=== PATIENT | male | born 1955 | race Caucasian/White ===

== ENCOUNTER 2023-09-09 19:01 | Observation (INO) | payer BC, SELFPAY ==
--- NOTE | ~2023-09-09 | CT_ITS ---
EXAMINATION: CTA BRAIN/CAROTID DATE: 09/09/2023 22:46 INDICATION: Dizziness TECHNIQUE: Computed tomographic angiography (CTA) of the head and neck was performed with 100 mL Omni paque-350 intravenous contrast. Multiplanar reconstructions and maximum intensity projection 3D-recon structions of the carotid arteries and of the intracranial arteries were created by the technologist on a separate workstation. Automated exposure control and iterative reconstruction technique were emp loyed.The dose-length product was 1305.38 mGy-cm. COMPARISON: Head CT dated 09/09/2023 FINDINGS: Carotid arteries: There is no evident atherosclerotic plaque with 0% stenosis of the right carotid bulb relative to nor mal distal artery lumen diameter (NASCET criteria). There is small amount of atherosclerotic plaque w ith 0% stenosis of the left carotid bulb relative to normal distal artery lumen diameter. Left verteb ral artery is dominant. No significant stenosis evident along the cervical portions of the bilateral vertebral arteries. Mild dependent atelectasis in the visualized upper lungs. The cervical soft tissu es and visualized superior mediastinum are unremarkable. Moderate to severe cervical spondylosis. Intracranial arteries There is no hemodynamically significant stenosis in the vertebral, basilar and internal carotid arter ies. Left vertebral artery is dominant.. There are no aneurysms identified. Both A1 and P1 segments are patent. Cerebral arterial arborization appears symmetric. IMPRESSION: 1. 0% stenosis of the right and left carotid bulbs relative to normal distal artery lumen diameter (N ASCET criteria). 2. Unremarkable cerebral CT angiogram with no hemodynamically significant stenosis, thrombosis or ane urysm. Reviewed, dictated and finalized at location A. ING ALLEY REFINISHER IMPRESSION: 1. 0% stenosis of the right and left carotid bulbs relative to normal distal ar macario lumen diameter (NASCET criteria). 2. Unremarkable cerebral CT angiogram with no hemodynamically significant steno sis, thrombosis or aneurysm.
--- NOTE | ~2023-09-09 | MR_ITS ---
MRI of the brain Clinical History: Ataxia Technique: Axial and sagittal T1-weighted images were acquired. These were followed by axial T2-weigh giovanna, diffusion weighted, gradient, and FLAIR images. Following intravenous administration of 18 cc Mu ltiHance gadolinium, T1-weighted fat-sat imaging was performed in the axial and coronal planes. Findings: There is no acute infarct, intracranial hemorrhage, or mass lesion. There are minimal chron ic white matter changes in the periventricular white matter bilaterally. Ventricles and subarachnoid spaces are unremarkable. Orbits are unremarkable. Paranasal sinuses and m astoid air cells are clear. Major intracranial flow voids are intact. Sagittal midline structures are intact. No abnormal postcontrast enhancement identified. IMPRESSION: Minimal chronic white matter changes, otherwise unremarkable exam. Reviewed, dictated and finalized at location M. ISSIONER PUBLIC WORKS
--- NOTE | ~2023-09-09 | XR_ITS ---
EXAMINATION: XR chest 2V DATE: 09/09/2023 21:41 INDICATION: Dizziness with any movement TECHNIQUE: frontal and lateral views of the chest were obtained. COMPARISON: Chest radiograph dated FINDINGS: The lungs are clear with no focal airspace opacities, pulmonary edema, pleural effusion or pneumothor ax. The cardiomediastinal silhouette is normal. Moderate to severe thoracic spondylosis. IMPRESSION: 1. No acute cardiopulmonary disease. Reviewed, dictated and finalized at location A. OTIC ASSISTANT
--- NOTE | ~2023-09-09 | CT_ITS ---
EXAMINATION: CT abdomen pelvis w con DATE: 09/10/2023 13:20 INDICATION: Abdominal pain TECHNIQUE: Computed tomography (CT) of the abdomen and pelvis was performed with 200 CC Omnipaque 350 intravenous contrast due to repeat scan and injection as result of motion. Automated exposure contro l and iterative reconstruction technique were employed. Exam dose: 1294.38 mGy-cm total exam DLP. COMPARISON: None. FINDINGS: Minimal patchy groundglass infiltrates of the right upper and lower lobes. Heart size is within normal range. No pericardial or pleural effusion. Small sliding hiatal hernia. The liver, gallbladder, bile ducts, spleen, pancreas, pancreatic duct, and adrenal glands and kidneys are unremarkable. No urinary tract calculus or hydroureteronephrosis. There is mild to moderate pros carter enlargement. The urinary bladder is unremarkable. Normal caliber of the abdominal aorta. No intraperitoneal or retroperitoneal or pelvic mass lesion or adenopathy or ascites. Small sliding hiatal hernia. Minimal diverticulosis of the colon; no evidence of diverticulitis. Normal appendix. No bowel obstruction, bowel wall thickening, pneumatosis or intraperitoneal free air is detected. No suspicious osteolytic or osteoblastic lesions. IMPRESSION: Small sliding hiatal hernia Normal appendix Minimal colonic diverticulosis; no evidence of diverticulitis Prostate enlargement Reviewed, dictated and finalized at Location A. Reviewed, dictated and finalized at location L. ING PROCESS SPECIALIST
--- NOTE | ~2023-09-09 | CT_ITS ---
EXAMINATION: CT brain wo con DATE: 09/09/2023 21:33 INDICATION: Dizziness. Altered mental status. TECHNIQUE: Computed tomography (CT) of the head was performed without intravenous contrast. Sagittal and coronal reconstructions were performed. The mA was adjusted according to patient size. Iterative reconstruction technique was employed. The dose-length product was 681.00 mGy-cm. COMPARISON: None FINDINGS: No acute intracranial hemorrhage, acute infarction or abnormal extra axial fluid collection. Symmetri c prominence of the sulci and subarachnoid spaces overlying the convexities consistent with mild age- appropriate diffuse cerebral volume loss. Ventricles are normal and symmetric. No mass/mass effect. T he orbits, paranasal sinuses and mastoid air cells are normal. IMPRESSION: 1. Normal aging brain. No acute intracranial process. Reviewed, dictated and finalized at location A. MOTIVE PARTS COUNTER ASSISTANT
[2023-09-09 19:05] VITALS: BP 190/84; PULSE 59; RESP 16; TEMP 36.7; O2SAT 100
[2023-09-09 21:01] VITALS: BP 179/90; PULSE 60; RESP 15; O2SAT 99
--- NOTE | 2023-09-09 21:21 | ECG_ITS ---
Measurements Intervals [place] Rate: 57 P: 28 OR: 225 QRS: -43 QRSD: 114 T: -7 QT: 424 QTc: 416 Interpretive Statements SINUS BRADYCARDIA WITH FIRST DEGREE AV BLOCK INCOMPLETE RIGHT BUNDLE BRANCH BLOCK [90+ ms QRS DURATION, TERMINAL R IN V1/V2, 40+ ms S IN I/aVL/V4/V5/V6] POSSIBLE ANTERIOR MYOCARDIAL INFARCTION , OF INDETERMINATE AGE [30 ms Q WAVE IN V3/V4, OR R < 0.2 mV IN V4] INFERIOR MYOCARDIAL INFARCTION , OF INDETERMINATE AGE [40+ ms Q WAVE AND/OR ST/T ABNORMALITY IN II/aVF] NO PREVIOUS ECG AVAILABLE FOR COMPARISON Electronically Signed On 09-10-2023 14:59:59 ORTHODONTIC LAB TECHNICIAN by Noemy Watson M.D.
[2023-09-09 21:49] LABS: Basophils Absolute Auto 0.1 K/mm3 (0.0-0.1); Basophils Percent Auto 0.5 % (0.2-1.2); Eosinophils Percent Auto 0.2 % (0-4.4); Hemoglobin 14.7 g/dL (14.0-18.0); Immature Granulocyte Absolute 0.04 K/mm3 (0.00-0.031); Immature Granulocyte Percent A 0.3 % (0-0.5); Lymphocytes Absolute Auto 0.77 K/mm3 (0.9-3.2); Lymphocytes Percent Auto 6.3 % (18.3-44.2); Mean Corpuscular HGB Conc 32.7 g/dl (32-36); Mean Corpuscular Hemoglobin 29.9 pg (26-34); Mean Corpuscular Volume 91.6 fl (80-100); Mean Platelet Volume 9.8 fl (7.4-10.4); Monocytes Absolute Auto 0.5 K/mm3 (0.1-0.6); Monocytes Percent Auto 4.3 % (2.6-8.5); Neutrophils Absolute Auto 10.8 K/mm3 (1.3-6.7); Neutrophils Percent Auto 88.4 % (45.5-73.1); Platelet Count Result 199 k/mm3 (150-375); Red Blood Count 4.91 M/mm3 (4.6-6.20); Red Cell Distribution Width 12.2 % (11.5-14.5); White Blood Count 12.3 K/mm3 (4.5-10.0)
[2023-09-09 21:57] LABS: Alanine Aminotransferase 20 U/L (6-50); Albumin Level 4.5 g/dL (3.5-5.1); Alkaline Phosphatase 69 U/L (38-126); Anion Gap 2 mmol/L (8-16); Aspartate Amino Transferase 40 U/L (17-59); Bilirubin,Total 0.8 mg/dL (0.2-1.3); Blood Urea Nitrogen 24 mg/dL (9-20); Calcium 9.5 mg/dL (8.4-10.2); Carbon Dioxide 27 mmol/L (22-30); Chloride 108 mmol/L (98-107); Estimated CRCL calculation 64 ml/min; Estimated Glomerular Filt Rate > 60; Glucose 147 mg/dL (65-110); Potassium 4.2 mmol/L (3.4-5.0); Sodium 137 mmol/L (137-145)
--- NOTE | 2023-09-09 22:06 | ED.RECABL ---
HPI - Recheck/Abnormal Lab/Rx General Chief Complaint: Recheck/Abnormal Lab/Rx Stated Complaint: dizzy, nausea, hx lewy body dementia Time Seen by Provider: 09/09/23 21:21 Source: patient and family Mode of arrival: ambulatory Limitations: dementia History of Present Illness HPI narrative: This is a 67-year-old male that presents to the emergency department for dizziness. Ongoing since this morning. Associated with feelings of being off balance, nausea and vomiting. Denies fever, chest pain, shortness of breath, focal numbness or weakness. Related Data Allergies Allergy/AdvReac Type Severity Reaction Status Date / Time PENICILLIN Allergy Swelling Uncoded 09/09/23 20:55 Review of Systems Review of Systems: CONSTITUTIONAL: Denies fever EYES: Denies visual changes CARDIOVASCULAR: Denies chest pain, or edema. RESPIRATORY: Denies dyspnea. GASTROINTESTINAL: Reports nausea, vomiting NEUROLOGIC: Denies headache, numbness, or weakness. All systems reviewed & are unremarkable except as noted in HPI and below PMFSH Past Medical History Medical History (Updated 09/10/23 @ 00:43 by Estrellita Rodgers PA-C) History of BPH History of dementia Social History Social History (Updated 09/09/23 @ 22:10 by Estrellita Rodgers PA-C) Substance use: never Exam Narrative: GENERAL: Well-appearing, well-nourished, and in no acute distress. HEAD: Normocephalic, atraumatic. EYES: PERRLA and EOMI. ENT: Nares clear, no rhinorrhea or epistaxis. Mucous membranes moist. Oropharynx without tonsillar hypertrophy exudate or other lesions. Bilateral TMs pearly davidson non-bulging NECK: Supple. No adenopathy or masses. CHEST: Clear to auscultation. No respiratory distress. No wheezes rales or rhonchi HEART: Regular rate and rhythm. No murmur heard. Normal peripheral pulses. EXTREMITIES: Normal range of motion. No edema. Strength equal in bilateral upper and lower extremities (5/5) SKIN: Warm, dry, no rash. NEURO: No focal deficits. Alert and oriented x3. Cranial nerves 2-12 grossly intact. Normal [id number]. Difficulty with finger to nose bilaterally PSYCH: Normal mood and affect Course Course Emergency Course: Patient and family updated on his workup. Patient continues to be off balance, unable to ambulate. Will be admitted for further evaluation Consultations Consultation #1: Spoke with hospitalist about patient and workup who accepts admission Date: 09/09/23 Vital Signs Vital signs: Vital Signs Temperature 98.0 F 09/09/23 19:05 Pulse Rate 59 L 09/09/23 19:05 Respiratory Rate 16 09/09/23 19:05 Blood Pressure 190/84 H 09/09/23 19:05 Pulse Oximetry 100 09/09/23 19:05 Oxygen Delivery Room Air 09/09/23 19:05 Temperature 98.0 F 09/09/23 19:05 Pulse Rate 55 L 09/09/23 23:01 Respiratory Rate 17 09/09/23 23:01 Blood Pressure 176/85 H 09/09/23 23:01 Pulse Oximetry 98 09/09/23 23:01 Oxygen Delivery Room Air 09/09/23 21:01 MDM - Recheck/Abnormal Lab/Rx MDM Narrative Medical decision making narrative: Patient presents to the ER for dizziness ongoing since this morning. Hypertensive upon arrival. This downtrended without intervention. Patient did have difficulty with finger to nose, otherwise neurologically intact at his baseline. CBC with mild leukocytosis to 12.3. Metabolic panel without concerning findings. Urine without evidence of infection. Chest x-ray without acute cardiopulmonary abnormality. CT brain without acute findings. CTA brain and carotid unremarkable. EKG without concerning changes. Patient and family updated on his workup. Patient continues to be off balance, unable to ambulate. Will be admitted for further evaluation. Spoke with hospitalist about patient and workup who accepts admission Differential Diagnosis Differential diagnosis: Likely other (CVA, BPPV, infection, electrolyte derangement, dehydration) Lab Data Attestation: I reviewed the patient's lab results. 09/09/23
[2023-09-09] MEDS: SODIUM CHLORIDE 0.9% IV 500 ML 999 ML IV CONT (22:12)
[2023-09-09] MEDS: MECLIZINE HCL 25 MG TABLET PO (22:13)
[2023-09-09] MEDS: ONDANSETRON INJ 4 MG/2 ML VIAL IV PUSH (22:13)
[2023-09-09 23:01] VITALS: BP 176/85; PULSE 55; RESP 17; O2SAT 98
[2023-09-09 23:02] LABS: Appearance Urine Clear (Clear); Bilirubin Urine Negative (Negative); Blood Urine Negative (Negative); Color Urine Yellow (Yellow); Glucose Urine UA Negative (Negative); Ketones Urine Negative (Negative); Leukocyte Esterase Ur Negative LEU/UL (Negative); Nitrate Urine Negative (Negative); Protein Urine Negative (Negative); Specific Grav Ur 1.021 (1.001-1.035)
[2023-09-09 23:18] LABS: Add Urine Microscopic? NO
--- NOTE | 2023-09-09 23:38 | PC.NURSE ---
Pt attempted ambulation w technician plant and maintenanceKendall medrano. Pt was unable to ambulate due to sensation that room was spinning . RAQUEL Knowles made aware.
[2023-09-10] VITALS (12 sets, daily range): BP systolic 120–189; BP diastolic 67–88; PULSE 53–66; RESP 16–20; TEMP 36.4–36.9; O2SAT 97–100
--- NOTE | 2023-09-10 | ECHO_ITS ---
Patient Info Name: Dom Giles Age: 67 years : 1955 Gender: Male Ht: 69 in Wt: 185 lbs BSA: 2.04 m2 HR: 66 bpm BP: 189 / 85 mmHg Heart Rhythm: Sinus Rhythm Technical Quality: Good Exam Date: 09/10/2023 9:55 AM Exam Location: Echo Lab Patient Status: Outpatient Admit Date: 09/10/2023 Staff Ordering Physician: Bettye Stoner Rail Grinder: Tarun Ross RDCS Attending Provider: Bettye Stoner Referring Physician: Georgiana SY; Exam Type: CA echo doppler color flow Study Info Indications - vertigo Complete two-dimensional, color flow and Doppler transthoracic echocardiogram is performed. Summary 1. Complete two-dimensional, color flow and Doppler transthoracic echocardiogram is performed. 2. Left ventricular chamber dimension is normal. 3. Left ventricular systolic function is normal, estimated at 65-70%. 4. Right ventricular systolic function is normal. 5. There is mild aortic valve regurgitation. 6. There is mild mitral valve regurgitation. 7. The aortic root size at the sinus of Valsalva is mildly dilated. Left Ventricle Left ventricular chamber dimension is normal. Left ventricular systolic function is normal, estimated at 65-70%. There is no increased left ventricular wall thickness. The left ventricular diastolic function is normal. Right Ventricle Right ventricular chamber dimension is normal. Right ventricular systolic function is normal. Left Atria Left atrial chamber dimension is normal. Right Atria Right atrial chamber dimension is normal. Atrial Septum Intact interatrial septum visualized by color flow imaging. Aortic Valve The aortic valve is trileaflet. There is no aortic valve stenosis. There is mild aortic valve regurgitation. Pulmonic Valve The pulmonic valve is not well visualized. There is trace pulmonic regurgitation. Mitral Valve There is mild mitral valve regurgitation. Tricuspid Valve There is trace tricuspid valve regurgitation. Pericardium/Pleural There is no pericardial effusion. Inferior Vena Cava Normal inferior vena cava with >50% collapse upon inspiration consistent with normal right atrial pressure, 3 mmHg. Aorta The aortic root size at the sinus of Valsalva is mildly dilated. Left Ventricular Outflow Tract Name Value Normal LVOT 2D LVOT Diameter 2.3 cm LVOT Doppler LVOT Peak Gradient 5 mmHg LVOT Mean Gradient 3 mmHg LVOT VTI 25 cm LVOT VTI/AV VTI Ratio 0.7 LVOT Stroke Volume 106 ml LVOT CO 6.4 l/min LVOT CI 3.1 l/min/m2 Pulmonic Valve Name Value Normal RVOT Doppler RVOT Peak Gradient 3 mmHg PV Doppler PV Peak Gradient 9 mmHg
--- NOTE | 2023-09-10 00:15 | PM.IMHP ---
H&P: HPI History of Present Illness Date/Time: 09/10/23 00:15 Chief Complaint: Dizziness Narrative: This is a 67-year-old male with past medical history significant Lewi body dementia is visiting here from [place] with his he was brought to the emergency room due to 's concerned for the patient debilitating dizziness according to who is at bedside from whom history has been obtained patient has not been able to provide any meaningful history. According to he has been his usual state of health up until early in the morning when he was unable to stand due to dizziness happens every time he stands she checked his blood pressure it was a systolic 195. Preliminary workup here has been essentially nonrevealing. Patient has been placed in observation for further evaluation management and treatment. EXAMINATION: CT brain wo con DATE: 09/09/2023 21:33 INDICATION: Dizziness. Altered mental status. TECHNIQUE: Computed tomography (CT) of the head was performed without intravenous contrast. Sagittal and coronal reconstructions were performed. The mA was adjusted according to patient size. Iterative reconstruction technique was employed. The dose-length product was 681.00 mGy-cm. COMPARISON: None FINDINGS: No acute intracranial hemorrhage, acute infarction or abnormal extra axial fluid collection. Symmetric prominence of the sulci and subarachnoid spaces overlying the convexities consistent with mild age-appropriate diffuse cerebral volume loss. Ventricles are normal and symmetric. No mass/mass effect. The orbits, paranasal sinuses and mastoid air cells are normal. IMPRESSION: 1. Normal aging brain. No acute intracranial process. EXAMINATION: XR chest 2V DATE: 09/09/2023 21:41 INDICATION: Dizziness with any movement TECHNIQUE: frontal and lateral views of the chest were obtained. COMPARISON: Chest radiograph dated FINDINGS: The lungs are clear with no focal airspace opacities, pulmonary edema, pleural effusion or pneumothorax. The cardiomediastinal silhouette is normal. Moderate to severe thoracic spondylosis. IMPRESSION: 1. No acute cardiopulmonary disease. EXAMINATION: CTA BRAIN/CAROTID DATE: 09/09/2023 22:46 INDICATION: Dizziness TECHNIQUE: Computed tomographic angiography (CTA) of the head and neck was performed with 100 mL Omnipaque-350 intravenous contrast. Multiplanar reconstructions and maximum intensity projection 3D-reconstructions of the carotid arteries and of the intracranial arteries were created by the technologist on a separate workstation. Automated exposure control and iterative reconstruction technique were employed.The dose-length product was 1305.38 mGy-cm. COMPARISON: Head CT dated 09/09/2023 ? FINDINGS: Carotid arteries: There is no evident atherosclerotic plaque with 0% stenosis of the right carotid bulb relative to normal distal artery lumen diameter (NASCET criteria). There is small amount of atherosclerotic plaque with 0% stenosis of the left carotid bulb relative to normal distal artery lumen diameter. Left vertebral artery is dominant. No significant stenosis evident along the cervical portions of the bilateral vertebral arteries. Mild dependent atelectasis in the visualized upper lungs. The cervical soft tissues and visualized superior mediastinum are unremarkable. Moderate to severe cervical spondylosis. Intracranial arteries There is no hemodynamically significant stenosis in the vertebral, basilar and internal carotid arteries. Left vertebral artery is dominant.. There are no aneurysms identified.? Both A1 and P1 segments are patent.? Cerebral arterial arborization appears symmetric. IMPRESSION: 1. 0% stenosis of the right and left carotid bulbs relative to normal distal artery lumen diameter (NASCET criteria). 2. Unremarkable cerebral CT angiogram with no hemodynamically significant stenosis, thrombosis or aneurysm. Review of Systems Review of Systems: ROS unobtainable:
--- NOTE | 2023-09-10 01:04 | ADMGEN ---
This patient, Dom Giles, was admitted to [facility] Surg Room 311-01. Patient/family oriented to hospital policies and general routines including ID bracelet, bed and alarms, visiting hours, pain management, procedures, bathroom and other care routines, personal items, smoking policy, room service/diet, and visiting hours. Information on how to activate the Rapid Response Team has been discussed. Patient/Family are encouraged to report perceived risks to care and to ask questions if they do not understand what they are told or what they should do.
[2023-09-10] MEDS: MECLIZINE HCL 25 MG TABLET PO ×2 (09:41→18:25)
[2023-09-10] MEDS: hydrALAZINE HCL 20 MG/ML VIAL 10 MG IV PUSH (09:42)
[2023-09-10] MEDS: MINOCYCLINE HCL 100 MG CAPSULE PO (09:42)
[2023-09-10 10:01] LABS: Basophils Absolute Auto 0.1 K/mm3 (0.0-0.1); Basophils Percent Auto 1.2 % (0.2-1.2); Eosinophils Absolute Auto 0.1 K/mm3 (0-0.3); Eosinophils Percent Auto 1.3 % (0-4.4); Hematocrit 43.3 % (42.0-52.0); Hemoglobin 13.9 g/dL (14.0-18.0); Immature Granulocyte Absolute 0.03 K/mm3 (0.00-0.031); Immature Granulocyte Percent A 0.4 % (0-0.5); Lymphocytes Absolute Auto 1.38 K/mm3 (0.9-3.2); Lymphocytes Percent Auto 16.6 % (18.3-44.2); Mean Corpuscular HGB Conc 32.1 g/dl (32-36); Mean Corpuscular Hemoglobin 29.8 pg (26-34); Mean Corpuscular Volume 92.7 fl (80-100); Mean Platelet Volume 9.3 fl (7.4-10.4); Monocytes Absolute Auto 0.5 K/mm3 (0.1-0.6); Monocytes Percent Auto 5.5 % (2.6-8.5); Neutrophils Absolute Auto 6.2 K/mm3 (1.3-6.7); Platelet Count Result 182 k/mm3 (150-375); Red Blood Count 4.67 M/mm3 (4.6-6.20); Red Cell Distribution Width 12.3 % (11.5-14.5); White Blood Count 8.3 K/mm3 (4.5-10.0)
[2023-09-10 10:13] LABS: Alanine Aminotransferase 18 U/L (6-50); Albumin Level 4.1 g/dL (3.5-5.1); Alkaline Phosphatase 59 U/L (38-126); Anion Gap 3 mmol/L (8-16); Aspartate Amino Transferase 29 U/L (17-59); Bilirubin,Total 0.8 mg/dL (0.2-1.3); Blood Urea Nitrogen 16 mg/dL (9-20); Calcium 9.2 mg/dL (8.4-10.2); Carbon Dioxide 30 mmol/L (22-30); Chloride 108 mmol/L (98-107); Estimated CRCL calculation 59 ml/min; Estimated Glomerular Filt Rate > 60; Glucose 125 mg/dL (65-110); Magnesium 2.2 mg/dL (1.6-2.3); Potassium 4.3 mmol/L (3.4-5.0); Sodium 141 mmol/L (137-145)
--- NOTE | 2023-09-10 12:09 | PM.IMPN ---
Progress Note: A&P Assessment and Plan (1) Dizziness: Code(s): R42 - Dizziness and giddiness Status: Acute Assessment and Plan: Start Meclizine 25 mg Q6 hrs Await Neurology evaluation. CT brain and CTA head and neck without any remarkability. MRI without any acute findings. Physical exam is otherwise reassuring and labs are unremarkable this AM. (2) Lewy body dementia: Code(s): G31.83 - Neurocognitive disorder with Lewy bodies; F02.80 - Dementia in other diseases classified elsewhere, unspecified severity, without behavioral disturbance, psychotic disturbance, mood disturbance, and anxiety Status: Chronic Assessment and Plan: Resume home meds (3) Abdominal discomfort: Code(s): R10.9 - Unspecified abdominal pain Status: Acute Assessment and Plan: CT abdomen and pelvis unremarkable for Intraabdominal findings. Subsequent findings of Right sided PNA. I spoke with Dr. Shen and he confirmed RLL PNA. (4) Uncontrolled hypertension: Code(s): I10 - Essential (primary) hypertension Status: Acute Assessment and Plan: Hydralazine p.r.n. Start Lisinopril 10 mg po daily as pt's BP has been persistently elevated. Continue to monitor and trend VS. (5) Diarrhea: Code(s): R19.7 - Diarrhea, unspecified Status: Acute Assessment and Plan: Pt with one episode of diarrhea today. RN noted pt to be holding his abdomen as if in pain. CT Abd and Pelvis ordered to assess for s/s of acute GI infection vs. perforation given the elevation of his WBC's upon admission. No acute intra-abdominal findings. (6) RLL pneumonia: Code(s): J18.9 - Pneumonia, unspecified organism Status: Acute Assessment and Plan: Not meeting sepsis criteria. Start Azithromycin. Time Spent With Patient Time with patient: 25 - 35 minutes Subjective Date/time seen: 09/10/23 1015 Interval history: This pt was examined at the bedside in interval assessment after being admitted to the hospital with Vertigo. He has a hx of Lewy Body Dementia and is here visiting family from out of town. He has not had any changes in his medications as of recently. He also has not been acutely ill and denies any new changes in his vision or other senses. MRI brain was performed this AM and is unremarkable for any new findings. Pt is started on meclizine this AM and we will assess whether or not it has had any effect on pt's symptoms. We are also awaiting Neurological evaluation. PT and OT are ordered and are pending for Vertiginous maneuvers. Pt became agitated and holding his abdomen. He has had 1 BM today and has had a lot of gas and holding and guarding of his abdomen, but became very agitated with the RN walking to the toilet with him to see his stools. CT abd and pelvis ordered at this time as he was having what appeared to be distress and he did present with Leukocytosis. Those results were received and there are no acute intra-abdominal findings, but there was a concern for ground glass infiltrates in the RUL and RLL. I discussed with Dr. Shen the re-read of the CT because the pts CXR was normal on arrival and he re-read the CT as a PNA in the RLL. He will be started on Azithromycin. The pt and his family were updated. MRI of brain showed only a normal aging brain. He will be able to discharge once he has been cleared by Neurology tomorrow and will need a full course of Azithromycin. Review of Systems Review of Systems: All systems reviewed & are unremarkable except as noted in HPI and below Exam Narrative: CONSTITUTIONAL: Pleasant, middle aged appearing male sitting up at the bedside at this time in no acute distress. HEENT: Atraumatic and normocephalic head. MMM, and patent oropharynx. EYES: PERRLA, EOM's intact NECK: Supple, FROM without any LN or JVD CARDIAC: RRR, S1 and S2 present. No S3, S4, m,r,g,h or displacement of PMI RESPIRATORY: CTAB in all mandujano. GI: Soft,
--- NOTE | 2023-09-10 13:43 | WPDNEURCNPN ---
Consult date: 09/10/23 HPI: Dom Giles is a 67 year old male Admitted to the hospital through the emergency room for the complaints of ongoing Lewy body dementia along with nausea and dizziness at the time of arrival to the emergency room patient was ambulatory and exam was limited because of the dementia patient is reportedly allergic to penicillin, has ongoing history of benign prostatic hypertrophy and dementia with no history of substance use and initial exam in the emergency room documented difficulties in finger to nose finger bilaterally his vital signs were with blood pressure 190/84 repeat 176/85 routine CBC was normal basic metabolic panel with blood sugar 147 and BUN 24 otherwise lab negative head CT scan negative chest x-ray negative and head and neck CTA also negative since admission had the MRI of the brain which documented minimal chronic white matter changes. Abdomen pelvis CT scan revealed small sliding hiatal hernia with minimal colonic diverticulosis and prostate enlargement. Review of Systems Review of Systems: All systems reviewed & are unremarkable except as noted in HPI and below PMFSH Past Medical History Medical History (Updated 09/10/23 @ 12:34 by ANDERSON Killian) Diarrhea History of BPH History of dementia Family History Family History (Updated 09/10/23 @ 01:19 by Lucas Lowe RN) Sibling Asthma Mother Congestive heart failure Social History Social History (Updated 09/09/23 @ 22:10 by Estrellita Rodgers PA-C) Smoking status: Never smoker Alcohol intake: never Substance use: never Do You Feel Safe in your Home?: No Lack of Transportation: No Lack of Food: Never True Current Housing: I Have Housing Concerned About Future Housing: No Difficulty Paying Gas/Electric Bills: No Difficulty Paying for Meds: No Currently Unemployed: No Education: Master's Degree or Higher Difficulty w/ Childcare or Family Care: No Spiritual care concerns: No Meds Home Medications and Allergies Home Medications Medication Instructions Recorded Confirmed Type escitalopram oxalate 20 mg tablet 20 mg PO HS 09/10/23 09/10/23 History galantamine 24 mg 24 hr 24 mg PO DAILY 09/10/23 09/10/23 History capsule,extended release minocycline 100 mg capsule 100 mg PO BID 09/10/23 09/10/23 History pyridostigmine bromide 60 mg tablet 60 mg PO TID 09/10/23 09/10/23 History pyridostigmine bromide 60 mg tablet 300 mg PO TID 09/10/23 09/10/23 History Allergies Allergy/AdvReac Type Severity Reaction Status Date / Time Penicillins Allergy Severe Swelling Verified 09/10/23 09:59 Vital Signs Vital Signs - 24 hr 09/09/23 19:05 09/09/23 21:01 09/09/23 23:01 Temperature 36.7 C Pulse Rate 59 L 60 55 L Respiratory Rate 16 15 17 Blood Pressure 190/84 H 179/90 H 176/85 H Pulse Oximetry 100 99 98 Oxygen Delivery Room Air Room Air 09/10/23 00:39 09/10/23 00:58 09/10/23 00:45 Temperature 36.6 C Pulse Rate 62 62 57 L Respiratory Rate 16 16 20 Blood Pressure 169/76 H 176/85 H Pulse Oximetry 98 98 100 Oxygen Delivery Room Air 09/10/23 06:00 Temperature 36.4 C Pulse Rate 66 Respiratory Rate 20 Blood Pressure 189/85 H Pulse Oximetry 99 Oxygen Delivery Results Labs 09/10/23 09:45 09/10/23 09:45 Labs: Short CBC 09/09/23 09/10/23 Range/Units 21:05 09:45 WBC 12.3 H 8.3 (4.5-10.0) K/mm3 Hgb 14.7 13.9 L (14.0-18.0) g/dL Hct 45.0 43.3 (42.0-52.0) % Plt Count 199 182 (150-375) k/mm3 [facility] 09/09/23 09/10/23 21:05 09:45 Sodium 137 141 Potassium 4.2 4.3 Chloride 108 H 108 H Carbon Dioxide 27 30 BUN 24 H 16 Creatinine 1.00 1.10 Glucose 147 H 125 H Calcium 9.5 9.2 Liver Function 09/09/23 09/10/23 Range/Units 21:05 09:45 Total Bilirubin 0.8 0.8 (0.2-1.3) mg/dL AST 40 29 (17-59) U/L ALT 20 18 (6-50) U/L Alkaline Phosphatase 69 59 (38-126) U/L Albumin 4.5 4.1
--- NOTE | 2023-09-10 14:16 | WPDNEURCNPN ---
Consult date: 09/10/23 HPI: Dom Giles is a 67 year old maleAdmitted to the hospital through the emergency room for the complaints of dizziness with nausea in addition to the history of Lewy body dementia patient complained of feeling of being off balance along with the nausea and vomiting, he is allergic to penicillin, has also ongoing history of benign prostatic hypertrophy with no history of substance use and initial exam in the emergency room with difficulties in performing [id number]-[id number]-finger bilaterally initial vital signs revealed blood pressure 190/84 with repeat 176/85, CBC with WBC 12.3 BMP with blood sugar of over 47 and BUN of [address] scan of the brain negative chest x-ray negative head and neck CTA negative EKG negative with no atrial fibrillation, subsequently had the MRI of the brain which revealed only minimal chronic white matter changes. At the time from it admission medications include E citalopram 20mg at night [id number] daily and pyridostigmine 300mg 3 times a day and also 60mg 3 times a day? Review of Systems Review of Systems: All systems reviewed & are unremarkable except as noted in HPI and below PMFSH Past Medical History Medical History (Updated 09/10/23 @ 12:34 by ANDERSON Killian) Diarrhea History of BPH History of dementia Family History Family History (Updated 09/10/23 @ 01:19 by Lucas Lowe RN) Sibling Asthma Mother Congestive heart failure Social History Social History (Updated 09/09/23 @ 22:10 by Estrellita Rodgers PA-C) Smoking status: Never smoker Alcohol intake: never Substance use: never Do You Feel Safe in your Home?: No Lack of Transportation: No Lack of Food: Never True Current Housing: I Have Housing Concerned About Future Housing: No Difficulty Paying Gas/Electric Bills: No Difficulty Paying for Meds: No Currently Unemployed: No Education: Master's Degree or Higher Difficulty w/ Childcare or Family Care: No Spiritual care concerns: No Meds Home Medications and Allergies Home Medications Medication Instructions Recorded Confirmed Type escitalopram oxalate 20 mg tablet 20 mg PO HS 09/10/23 09/10/23 History galantamine 24 mg 24 hr 24 mg PO DAILY 09/10/23 09/10/23 History capsule,extended release minocycline 100 mg capsule 100 mg PO BID 09/10/23 09/10/23 History pyridostigmine bromide 60 mg tablet 60 mg PO TID 09/10/23 09/10/23 History pyridostigmine bromide 60 mg tablet 300 mg PO TID 09/10/23 09/10/23 History Allergies Allergy/AdvReac Type Severity Reaction Status Date / Time Penicillins Allergy Severe Swelling Verified 09/10/23 09:59 Vital Signs Vital Signs - 24 hr 09/09/23 19:05 09/09/23 21:01 09/09/23 23:01 Temperature 36.7 C Pulse Rate 59 L 60 55 L Respiratory Rate 16 15 17 Blood Pressure 190/84 H 179/90 H 176/85 H Pulse Oximetry 100 99 98 Oxygen Delivery Room Air Room Air 09/10/23 00:39 09/10/23 00:58 09/10/23 00:45 Temperature 36.6 C Pulse Rate 62 62 57 L Respiratory Rate 16 16 20 Blood Pressure 169/76 H 176/85 H Pulse Oximetry 98 98 100 Oxygen Delivery Room Air 09/10/23 06:00 Temperature 36.4 C Pulse Rate 66 Respiratory Rate 20 Blood Pressure 189/85 H Pulse Oximetry 99 Oxygen Delivery Exam Narrative: revealed him to be awake alert cooperative in no obvious acute distress able to sit at the bedside without any truncal ataxia head normocephalic with no cranial bruit ear nose throat examination normal neck is supple with no bruit heart regular with no murmur lungs clear abdomen soft neurological he is awake alert oriented being in the hospital his speech nor dysphasic not dysarthric not dysphonic pupils round regular feels the vision full extraocular movements full face symmetrical tongue midline motor examination revealed him to have no drift of 1 side or other side tone is normal reflexes are symmetrical and plantars downgoing he had difficulties in giving
[2023-09-10] MEDS: ACETAMINOPHEN 325 MG TABLET 650 MG PO (16:04)
[2023-09-10] MEDS: pyRIDostigmine bromide 60 MG TABLET PO ×2 (16:05→20:40)
[2023-09-10 17:06] LABS: Influenza A QL RT-PCR Negative (Negative); Influenza B QL RT-PCR Negative (Negative); RSV RNA, RT-PCR Negative (Negative); SARS-CoV-2 RNA PCR Negative (Negative)
[2023-09-10] MEDS: AZITHROMYCIN 250 MG TABLET 500 MG PO (18:33)
[2023-09-10] MEDS: ESCITALOPRAM OXALATE 10 MG TABLET 20 MG PO (20:41)
[2023-09-11] VITALS (11 sets, daily range): BP systolic 114–174; BP diastolic 67–84; PULSE 50–61; RESP 16–18; TEMP 36.3–36.7; O2SAT 96–99
[2023-09-11 06:10] LABS: Basophils Absolute Auto 0.1 K/mm3 (0.0-0.1); Basophils Percent Auto 1.2 % (0.2-1.2); Eosinophils Absolute Auto 0.2 K/mm3 (0-0.3); Eosinophils Percent Auto 2.7 % (0-4.4); Hematocrit 41.1 % (42.0-52.0); Hemoglobin 13.7 g/dL (14.0-18.0); Immature Granulocyte Absolute 0.04 K/mm3 (0.00-0.031); Immature Granulocyte Percent A 0.5 % (0-0.5); Lymphocytes Absolute Auto 1.51 K/mm3 (0.9-3.2); Lymphocytes Percent Auto 20.3 % (18.3-44.2); Mean Corpuscular HGB Conc 33.3 g/dl (32-36); Mean Corpuscular Hemoglobin 30.6 pg (26-34); Mean Corpuscular Volume 91.7 fl (80-100); Mean Platelet Volume 9.3 fl (7.4-10.4); Monocytes Absolute Auto 0.8 K/mm3 (0.1-0.6); Monocytes Percent Auto 10.2 % (2.6-8.5); Neutrophils Absolute Auto 4.8 K/mm3 (1.3-6.7); Neutrophils Percent Auto 65.1 % (45.5-73.1); Platelet Count Result 169 k/mm3 (150-375); Red Blood Count 4.48 M/mm3 (4.6-6.20); Red Cell Distribution Width 12.4 % (11.5-14.5); White Blood Count 7.4 K/mm3 (4.5-10.0)
[2023-09-11] MEDS: pyRIDostigmine bromide 60 MG TABLET PO (06:21)
[2023-09-11] MEDS: MECLIZINE HCL 25 MG TABLET PO (06:21)
[2023-09-11 06:27] LABS: Alanine Aminotransferase 16 U/L (6-50); Albumin Level 3.7 g/dL (3.5-5.1); Alkaline Phosphatase 57 U/L (38-126); Anion Gap 3 mmol/L (8-16); Aspartate Amino Transferase 29 U/L (17-59); Bilirubin,Total 0.8 mg/dL (0.2-1.3); Blood Urea Nitrogen 20 mg/dL (9-20); Calcium 8.8 mg/dL (8.4-10.2); Carbon Dioxide 29 mmol/L (22-30); Chloride 107 mmol/L (98-107); Estimated CRCL calculation 59 ml/min; Estimated Glomerular Filt Rate > 60; Glucose 95 mg/dL (65-110); Potassium 3.9 mmol/L (3.4-5.0); Sodium 139 mmol/L (137-145)
[2023-09-11] MEDS: AZITHROMYCIN 250 MG TABLET 500 MG PO (09:06)
[2023-09-11] MEDS: lisinopriL 10 MG TABLET PO (09:06)
--- NOTE | 2023-09-11 11:37 | PM.DS ---
DS: Admitting Diagnosis Discharge Date 09/11/2023 Admitting Diagnosis Ataxia PNA DS: Discharge Diagnosis Discharge Diagnosis (1) Lewy body dementia: Code(s): G31.83 - Neurocognitive disorder with Lewy bodies; F02.80 - Dementia in other diseases classified elsewhere, unspecified severity, without behavioral disturbance, psychotic disturbance, mood disturbance, and anxiety Status: Chronic Assessment and Plan: -continue home medication (2) Ataxia: Code(s): R27.0 - Ataxia, unspecified Status: Acute Assessment and Plan: -suspect (3) RLL pneumonia: Code(s): J18.9 - Pneumonia, unspecified organism Status: Acute Assessment and Plan: Not meeting sepsis criteria -continue azithromycin p.o. 5 days 2/5 doses given (4) Abdominal discomfort: Code(s): R10.9 - Unspecified abdominal pain Status: Acute Assessment and Plan: CT abdomen and pelvis unremarkable for intra-abdominal findings Subsequent finding of right-sided PNA, treat with azithromycin 5 days (5) Diarrhea: Code(s): R19.7 - Diarrhea, unspecified Status: Resolved Assessment and Plan: -resolved (6) Dizziness: Code(s): R42 - Dizziness and giddiness Status: Acute Assessment and Plan: -continue meclizine 25 mg q.6 -neurology discharge may follow-up outpatient -CT brain and CTA head neck unremarkable -MRI without any acute findings -patient sitting bedside denies any dizziness nausea vomiting-this time. (7) Uncontrolled hypertension: Code(s): I10 - Essential (primary) hypertension Status: Acute Assessment and Plan: -continue lisinopril 10 mg p.o. daily -continue to monitor showed only blood pressure DS: Summary Hospital Course Reason for hospitalization: Patient presented to ER via private vehicle for complaints debilitating dizziness Hospital Course: Chief Complaint: Dizziness Narrative: This is a 67-year-old male with past medical history significant Lewi? body? dementia is visiting here from [place] with his he was brought to the emergency room due to 's concerned for the patient debilitating dizziness according to who is at bedside from whom history has been obtained patient has not been able to provide any meaningful history.? According to he has been his usual state of health up until early in the morning when he was unable to stand due to dizziness happens every time he stands she checked his blood pressure it was a systolic 195.? Preliminary workup here has been essentially nonrevealing.? Patient has been placed in observation for further evaluation management and treatment. Interval Hx: 09/10/2023: Subjective Date/time seen: 09/10/23? 1015 Interval history: This pt was examined at the bedside in interval assessment after being admitted to the hospital with Vertigo. He has a hx of Lewy Body Dementia and is here visiting family from out of town. He has not had any changes in his medications as of recently. He also has not been acutely ill and denies any new changes in his vision or other senses. MRI brain was performed this AM and is unremarkable for any new findings.? Pt is started on meclizine this AM and we will assess whether or not it has had any effect on pt's symptoms. We are also awaiting Neurological evaluation. PT and OT are ordered and are pending for Vertiginous maneuvers. Pt became agitated and holding his abdomen. He has had 1 BM today and has had a lot of gas and holding and guarding of his abdomen, but became very agitated with the RN walking to the toilet with him to see his stools. CT abd and pelvis ordered at this time as he was having what appeared to be distress and he did present with Leukocytosis. Those results were received and there are no acute intra-abdominal findings, but there was a concern for ground glass infiltrates in the RUL and RLL.? I discussed with Dr. Shen the re-read of the CT because the pts CX
== END 2023-09-11 12:30 | disposition home or self-care (01) ==
LOC: ANHED 23:21 → ANH3MEDSUR 09-10 00:29
PROVIDERS: Admitting Provider Internal Medicine; Emergency Provider Physician Assistant; Visit Provider Nurse Practitioner Adult Health
DX: G31.83 Neurocognitive disorder with Lewy bodies (principal); F02.80 Dementia in other diseases classified elsewhere, unspecified severity, without behavioral disturbance, psychotic disturbance, mood disturbance, and anxiety; J18.9 Pneumonia, unspecified organism; R27.0 Ataxia, unspecified; R10.9 Unspecified abdominal pain; R19.7 Diarrhea, unspecified; I10 Essential (primary) hypertension; Z20.822 Contact with and (suspected) exposure to COVID-19; K44.9 Diaphragmatic hernia without obstruction or gangrene; I45.10 Unspecified right bundle-branch block; I08.0 Rheumatic disorders of both mitral and aortic valves; N40.0 Benign prostatic hyperplasia without lower urinary tract symptoms; I77.810 Thoracic aortic ectasia; M47.812 Spondylosis without myelopathy or radiculopathy, cervical region; M47.814 Spondylosis without myelopathy or radiculopathy, thoracic region; Z79.899 Other long term (current) drug therapy
CPT/HCPCS: 36415; 70450; 70496; 70498; 70553; 71046; 74177; 80053; 81003; 83735; 85025; 87637; 93005; 93306; 96361; 96374; 96375; 97162; 97165; 97530; 99285; A9270; A9577; G0378; J0360; J2405; J7040; Q9967